=== PATIENT | male | born 1995 | race Caucasian/White ===

== ENCOUNTER 2017-01-10 22:45 | Emergency (ER) | payer MEDICARE, OTHER ==
[~2017-01-10 22:45] MED LIST: DEPAKOTE PO; DEPAKOTE250 MG PO; DESYREL100 MG PO; INTUNIV2 MG PO; MELATONIN300 MCG PO; RISPERDAL0.5 MG PO; ZYPREXA10 MG PO
[2017-01-10 23:16] LABS: BLOOD UREA NITROGEN 13 mg/dL (9-23); BUN/CREATININE RATIO 14.44; CALCIUM SERUM 9.2 mg/dL (8.4-10.2); CARBON DIOXIDE 26 mmol/L (22-31); CHLORIDE 102 mmol/L (100-111); CREATININE SERUM 0.9 mg/dL (0.6-1.4); DEPAKENE (VALPROIC ACID) 81 UG/ML (50-125); GLOM FILT RATE Estimated ABOVE60 mL/min (>60); GLUCOSE FASTING 123 mg/dL (70-110); POTASSIUM 3.5 mmol/L (3.5-5.1); SODIUM 137 mmol/L (135-145)
== END 2017-01-10 23:57 | disposition home or self-care (01) ==
LOC: SED 22:45
PROVIDERS: Emergency Medicine
DX: G40.909 Epilepsy, unspecified, not intractable, without status epilepticus (principal)
CPT/HCPCS: 80048; 80164; 99284

== ENCOUNTER → 2017-06-23 | Outpatient (CLI) | payer MEDICARE, OTHER | END | disposition home or self-care (01) | LOC: SLAB 15:36 | DX: G40.909 Epilepsy, unspecified, not intractable, without status epilepticus (principal); E72.20 Disorder of urea cycle metabolism, unspecified | CPT/HCPCS: 36415; 80164; 82140 ==